=== PATIENT | female | born 1945 | race Caucasian/White ===

== ENCOUNTER 2020-06-19 19:47 | Emergency (ER) | payer MEDICARE, SELFPAY ==
--- NOTE | ~2020-06-19 | CT_ITS ---
EXAMINATION: CT abdomen pelvis w con INDICATION: Right lower quadrant pain TECHNIQUE: Computed tomographic images of the abdomen and pelvis were obtained after the administrati on of 100 cc of Omnipaque 350 intravenous contrast. The dose-length product (DLP) was 291.90 mGy-cm. Automated exposure control and iterative reconstruction technique were employed. COMPARISON: 05/26/2019 FINDINGS: Minimal dependent atelectasis is present in the lung bases. The heart size is normal. Calci fied bilateral breast implants are noted. There is a small sliding hiatal hernia. Surgical changes ar e seen near the gastroesophageal junction. The gallbladder is surgically absent. The liver, pancreas, and adrenal glands are normal. Punctate calcifications in an otherwise normal spleen likely represen t healed granulomatous disease. The kidneys are unremarkable. No pathologically enlarged abdominal or pelvic lymph nodes are identified. There is no free intraperitoneal gas or evidence of bowel obstruc tion. There is a ventral hernia of the lateral abdominal wall in the right lower quadrant which conta ins fat. There is severe lumbar spondylosis and levoscoliosis. Again noted is chronic calcification s urrounding the urethra. A large volume of colonic stool is present. IMPRESSION: 1. Fat-containing hernia of the right lower quadrant abdominal wall which could account for the patie nt's pain. Clinically correlate for reducibility. Reviewed, dictated and finalized at location A. L CEILING BUILDER IMPRESSION: 1. Fat-containing hernia of the right lower quadrant abdominal wall which could account for the patient's pain. Clinically correlate for reducibility.
[2020-06-19 19:50] VITALS: BP 161/104; PULSE 97; RESP 18; TEMP 36.9; O2SAT 98
[2020-06-19 20:06] LABS: Basophils Absolute Auto 0.1 K/mm3 (0.0-0.1); Basophils Percent Auto 0.5 % (0.2-1.2); Eosinophils Absolute Auto 0.3 K/mm3 (0-0.3); Eosinophils Percent Auto 2.5 % (0-4.4); Hematocrit 40.7 % (37.0-47.0); Hemoglobin 13.4 g/dL (12.0-15.0); Immature Granulocyte Absolute 0.03 K/mm3 (0.00-0.031); Immature Granulocyte Percent A 0.3 % (0-0.5); Lymphocytes Absolute Auto 1.85 K/mm3 (0.9-3.2); Lymphocytes Percent Auto 18.2 % (18.3-44.2); Mean Corpuscular HGB Conc 32.9 g/dl (32-36); Mean Corpuscular Hemoglobin 30.7 pg (26-34); Mean Corpuscular Volume 93.1 fl (80-100); Mean Platelet Volume 10.2 fl (7.4-10.4); Monocytes Absolute Auto 0.9 K/mm3 (0.1-0.6); Monocytes Percent Auto 8.4 % (2.6-8.5); Neutrophils Absolute Auto 7.1 K/mm3 (1.3-6.7); Neutrophils Percent Auto 70.1 % (45.5-73.1); Platelet Count Result 254 k/mm3 (150-375); Red Blood Count 4.37 M/mm3 (4.2-5.4); Red Cell Distribution Width 12.3 % (11.5-14.5); White Blood Count 10.2 K/mm3 (4.5-10.0)
[2020-06-19 20:19] LABS: Alanine Aminotransferase 20 U/L (4-35); Albumin Level 4.4 g/dL (3.5-5.1); Alkaline Phosphatase 137 U/L (38-126); Anion Gap 5 mmol/L (8-16); Aspartate Amino Transferase 36 U/L (14-36); Bilirubin,Total 0.5 mg/dL (0.2-1.3); Blood Urea Nitrogen 9 mg/dL (7-17); Calcium 9.2 mg/dL (8.4-10.2); Carbon Dioxide 30 mmol/L (22-30); Chloride 102 mmol/L (98-107); Estimated Glomerular Filt Rate > 60; Glucose 107 mg/dL (65-105); Lipase 42 U/L (23-300); Potassium 3.8 mmol/L (3.4-5.0); Sodium 137 mmol/L (137-145)
--- NOTE | 2020-06-19 21:32 | PC.NURSE ---
patient brought back to ED room 5 with abdomen pain. see initial notes. patient has been in our waiting area due to no available beds in the ED. ambulated to restroom for urine specimen. patient's daughter Luzmaria notified that patient is now in ED room she can come in.
--- NOTE | 2020-06-19 21:37 | ED.ABDPAIN ---
HPI - Abdominal Pain General Chief Complaint: Abdominal Pain Stated Complaint: RLQ pain Time Seen by Provider: 06/19/20 21:36 History of Present Illness HPI narrative: 74 yo female w/ h/o cholecystectomy, htn presents to the ED for Abdominal pain. She has had severe intermittent pain in the RLQ for the past few hours worse with movement. No radiation. No associated symptoms. She has never had this pain before. She does not believe that she has an appendix, but she is not sure. Related Data Home Medications Medication Instructions Recorded Confirmed clotrimazole-betamethasone 1 1 applic TOPICAL BID 05/18/19 05/09/20 %-0.05 % topical cream mirabegron 25 mg tablet,extended 50 mg PO DAILY 05/18/19 05/09/20 release 24 hr Adults Multivitamin 1 tablet PO DAILY 05/20/19 05/09/20 Allergies Allergy/AdvReac Type Severity Reaction Status Date / Time phenylephrine Allergy Mild Unknown Verified 06/19/20 21:35 sumatriptan [From Imitrex] Allergy Mild Nausea Verified 06/19/20 21:35 codeine Allergy Unknown Nausea Verified 06/19/20 21:35 gabapentin Allergy Unknown Nausea Verified 06/19/20 21:35 hydrocodone [From Vicodin] Allergy Unknown Nausea Verified 06/19/20 21:35 donepezil AdvReac Intermediate NAUSEA Verified 06/19/20 21:35 propoxyphene AdvReac Unknown SEVERE Verified 06/19/20 21:35 NAUSEA Review of Systems Review of Systems: All systems reviewed & are unremarkable except as noted in HPI and below Constitutional: Constitutional: Denies fever(s) ENT: Denies dizziness Cardiovascular: Cardiovascular: Denies chest pain Respiratory: Respiratory: Denies dyspnea Gastrointestinal: Gastrointestinal: Reports abdominal pain, Denies diarrhea, Denies nausea and Denies vomiting Genitourinary: Genitourinary: Denies hematuria and Denies dysuria Musculoskeletal: Musculoskeletal: Denies back pain Neurologic: Denies numbness and Denies weakness [facility] Past Medical History Medical History (Updated 06/20/20 @ 00:00 by Background Daemon) Anxiety Arthritis Benign breast cyst in female Eczema Elevated liver enzymes (~05/30/19) GERD (gastroesophageal reflux disease) HLD (hyperlipidemia) Hypertension Hypothyroid (Unknown) Meningitis Primary hypersomnia Right femoral fracture Seasonal allergies Skin problem TIA (transient ischemic attack) Urinary problem Surgical History Surgical History H/O bilateral cataract extraction H/O mastectomy H/O removal of cyst History of appendectomy History of bladder surgery History of carpal tunnel surgery of right wrist June 2019 History of hernia repair Hiatal History of hysterectomy History of repair of hiatal hernia Hx of breast implants, bilateral Hx of tonsillectomy S/P laparoscopic cholecystectomy Family History Family History Father Acute myocardial infarction Patient's father is Mother Family history of respiratory disorder Patient's mother is CHF (congestive heart failure) Social History Social History Social History: Patient lives at home with her dog. She lists family members Luzmaria and Bernadette as her surrogate medical decision makers. She wishes to be listed as a Full Code, but does not wish to be on retirement ventilation. She sees Dr. Peres as her primary. Smoking status: Never smoker Second hand tobacco smoke exposure: No Alcohol intake: current Substance use: never Gender identity (if verbalized by the patient): Female Spiritual care concerns: No Agree to blood products: No Exam Const: General: healthy appearing, no acute distress and alert Orientation/consciousness: patient oriented x3 HENMT: Head: normal to inspection Neck: Neck: normal visual inspection and no lymphadenopathy Chest: Chest palpation & inspecti
--- NOTE | 2020-06-19 21:40 | PC.NURSE ---
urine specimen collected and sent to lab. provider in room. on BP and O2 monitor.
[2020-06-19 21:43] VITALS: O2SAT 97
[2020-06-19 21:45] VITALS: O2SAT 96
[2020-06-19 21:46] VITALS: BP 194/91; O2SAT 98
[2020-06-19 21:48] LABS: Add Urine Microscopic? YES; Appearance Urine Clear (Clear); Bilirubin Urine Negative (Negative); Blood Urine Negative (Negative); Color Urine Straw (Yellow); Glucose Urine UA Negative (Negative); Ketones Urine Trace mg/dL (Negative); Leukocyte Esterase Ur Negative LEU/UL (Negative); Mucus Urine Rare /lpf; Nitrate Urine Negative (Negative); Protein Urine Negative (Negative); RBC Urine 0-2 /hpf (0-2); Squamous Epithelial Cell Urine Rare /hpf (Few); Urobilinogen Urine Negative mg/dL (<2.0); WBC Urine 0-3 /hpf
--- NOTE | 2020-06-19 21:50 | PC.NURSE ---
SL inserted. on BP and O2 monitor. waiting for urine results. waiting for further orders from provider.
--- NOTE | 2020-06-19 22:20 | PC.NURSE ---
patient in CT now.
--- NOTE | 2020-06-19 22:34 | PC.NURSE ---
CT resulted. patient ambulating to restroom.
--- NOTE | 2020-06-19 22:49 | PC.NURSE ---
provider in room now discussing test results with patient and her daughter.
[2020-06-19] MEDS: KETOROLAC 30 MG/ML VIAL (*BKC) IV PUSH (23:04)
[2020-06-19] MEDS: traMADol HCL (*CRX) 50 MG TABLET PO (23:05)
--- NOTE | 2020-06-19 23:05 | PC.NURSE ---
patient medicated as ordered. daughter in room. report given to Bozena.
[2020-06-19 23:28] VITALS: BP 121/109; PULSE 79; RESP 16; TEMP 36.6; O2SAT 97
== END 2020-06-19 23:28 | disposition home or self-care (01) ==
PROVIDERS: Emergency Provider Emergency Medicine; PCP Internal Medicine
DX: K46.9 Unspecified abdominal hernia without obstruction or gangrene (principal); M19.90 Unspecified osteoarthritis, unspecified site; K21.9 Gastro-esophageal reflux disease without esophagitis; E78.5 Hyperlipidemia, unspecified; I10 Essential (primary) hypertension; E03.9 Hypothyroidism, unspecified; Z86.73 Personal history of transient ischemic attack (TIA), and cerebral infarction without residual deficits; Z98.42 Cataract extraction status, left eye; Z98.41 Cataract extraction status, right eye; Z90.13 Acquired absence of bilateral breasts and nipples
CPT/HCPCS: 36415; 74177; 80053; 81001; 83690; 85025; 96374; 99284; A9270; J1885; Q9967

== ENCOUNTER 2020-07-02 10:31 | Outpatient (CLI) | payer MEDICARE, SELFPAY ==
--- NOTE | 2020-07-02 10:33 | ECG_ITS ---
Measurements Intervals Lovely Rate: 71 P: 37 LA: 147 QRS: -10 QRSD: 82 T: 37 QT: 385 QTc: 421 Interpretive Statements SINUS RHYTHM POSSIBLE LEFT ATRIAL ENLARGEMENT VOLTAGE CRITERIA FOR LVH POOR R WAVE PROGRESSION, ANTERIOR LEADS BASELINE ARTIFACT- I, II, III, AVR, AVL, AVF, V4-V6 BORDERLINE ECG Electronically Signed On 07-02-2020 10:54:42 SHUTTLE FINAL INSPECTOR by Prasanna Lorenzana D.O.
[2020-07-02 11:24] LABS: Basophils Percent Auto 0.6 % (0.2-1.2); Eosinophils Absolute Auto 0.3 K/mm3 (0-0.3); Eosinophils Percent Auto 3.5 % (0-4.4); Hematocrit 37.5 % (37.0-47.0); Hemoglobin 12.1 g/dL (12.0-15.0); Immature Granulocyte Absolute 0.02 K/mm3 (0.00-0.031); Immature Granulocyte Percent A 0.3 % (0-0.5); Lymphocytes Absolute Auto 1.35 K/mm3 (0.9-3.2); Lymphocytes Percent Auto 19.1 % (18.3-44.2); Mean Corpuscular HGB Conc 32.3 g/dl (32-36); Mean Corpuscular Hemoglobin 30.3 pg (26-34); Mean Corpuscular Volume 93.8 fl (80-100); Monocytes Absolute Auto 0.7 K/mm3 (0.1-0.6); Monocytes Percent Auto 9.2 % (2.6-8.5); Neutrophils Absolute Auto 4.8 K/mm3 (1.3-6.7); Neutrophils Percent Auto 67.3 % (45.5-73.1); Platelet Count Result 237 k/mm3 (150-375); Red Cell Distribution Width 12.8 % (11.5-14.5); White Blood Count 7.1 K/mm3 (4.5-10.0)
[2020-07-02 11:38] LABS: Anion Gap 4 mmol/L (8-16); Blood Urea Nitrogen 17 mg/dL (7-17); Calcium 8.6 mg/dL (8.4-10.2); Carbon Dioxide 30 mmol/L (22-30); Chloride 106 mmol/L (98-107); Estimated Glomerular Filt Rate > 60; Glucose 99 mg/dL (65-105); Potassium 3.8 mmol/L (3.4-5.0); Sodium 140 mmol/L (137-145)
== END 2020-07-02 10:32 | disposition home or self-care (01) ==
PROVIDERS: PCP Internal Medicine; Visit Provider Surgery
DX: Z01.818 Encounter for other preprocedural examination (principal); K43.9 Ventral hernia without obstruction or gangrene; I10 Essential (primary) hypertension; R94.31 Abnormal electrocardiogram [ECG] [EKG]
CPT/HCPCS: 36415; 80048; 85025; 86850; 86900; 86901; 93005

== ENCOUNTER → 2020-07-07 01:15 | Outpatient (CLI) | payer MEDICARE, SELFPAY ==
[2020-07-07 20:38] LABS: SARS-CoV-2 RNA PCR Negative
== END ==
PROVIDERS: PCP Internal Medicine; Visit Provider Surgery
DX: Z01.812 Encounter for preprocedural laboratory examination (principal); Z20.822 Contact with and (suspected) exposure to COVID-19
CPT/HCPCS: C9803; U0003; U0005

== ENCOUNTER 2020-07-10 02:13 | Day surgery (SDC) | payer MEDICARE, SELFPAY ==
[2020-06-28 14:27] VITALS: BMI 22.5
[2020-07-10] VITALS (14 sets, daily range): BP systolic 121–169; BP diastolic 57–82; PULSE 65–92; RESP 12–16; TEMP 36.5–37.2; O2SAT 94–100
[2020-07-10] MEDS: ACETAMINOPHEN 500 MG TABLET 1000 MG PO (10:41)
[2020-07-10] MEDS: KETOROLAC 15 MG/ML VIAL (*BKC) IV PUSH (10:51)
[2020-07-10] MEDS: LACTATED RINGERS 1,000 ML 30 ML IV CONT ×2 (10:53→13:41)
--- NOTE | 2020-07-10 11:27 | WPDANESEPPF ---
Anes - Initial Pre Proc Eval Procedure: Operation Date: 07/10/20 12:00 Proposed Procedures p Laparoscopic Ventral Spigelian Hernia Repair With Mesh - Nico Judge MD Date/Time: 07/10/20 11:27 Surgeon: Nico Judge MD Pre Op Diagnosis: Right Lower Quadrant Ventral Hernia Patient Data Age: 74 Gender: F Height: 5 ft Weight: 52.5 kg Last Vital Signs Temp 37.2 C 07/10/20 10:20 Pulse 75 07/10/20 10:20 Resp 14 07/10/20 10:20 BP 152/69 H 07/10/20 10:20 Pulse Ox 98 07/10/20 10:20 Allergies Allergy/AdvReac Type Severity Reaction Status Date / Time phenylephrine Allergy Mild Dizziness Verified 06/28/20 14:23 sumatriptan [From Imitrex] Allergy Mild Nausea Verified 06/28/20 14:23 codeine Allergy Unknown Nausea Verified 06/28/20 14:23 gabapentin Allergy Unknown Nausea Verified 06/28/20 14:23 hydrocodone [From Vicodin] Allergy Unknown Nausea Verified 06/28/20 14:23 donepezil AdvReac Intermediate NAUSEA Verified 06/28/20 14:23 propoxyphene AdvReac Unknown SEVERE Verified 06/28/20 14:23 NAUSEA Home Medications Medication Instructions Recorded Confirmed Type clotrimazole-betamethasone 1 1 applic TOPICAL BID PRN 05/18/19 07/10/20 History %-0.05 % topical cream mirabegron 25 mg tablet,extended 50 mg PO DAILY 05/18/19 07/10/20 History release 24 hr Adults Multivitamin 1 tablet PO DAILY 05/20/19 07/10/20 History armodafinil 250 mg tablet 125 mg PO DAILY 30 Days #15 tablet 02/09/20 07/10/20 Rx meloxicam 15 mg tablet 15 mg PO DAILY #90 tablet 02/29/20 07/10/20 Rx levothyroxine 50 mcg tablet 50 mcg PO DAILY #90 tablet 04/09/20 07/10/20 Rx tramadol 50 mg PO Q6H PRN #10 tablet 06/19/20 07/10/20 Rx azelastine 137 mcg NASAL Q12H PRN 06/28/20 07/10/20 History amlodipine 5 mg-benazepril 20 mg 1 cap PO DAILY #90 cap 07/10/20 07/10/20 Rx capsule Patient hx anesthesia problems: none Family hx anesthesia problems: none PMFSH Past Medical History Medical History Anxiety Arthritis Benign breast cyst in female Eczema Elevated liver enzymes (~05/30/19) GERD (gastroesophageal reflux disease) HLD (hyperlipidemia) Hypertension Hypothyroid (Unknown) Meningitis Primary hypersomnia Right femoral fracture Seasonal allergies Skin problem TIA (transient ischemic attack) Urinary problem Surgical History Surgical History H/O bilateral cataract extraction H/O mastectomy H/O removal of cyst History of appendectomy History of bladder surgery History of carpal tunnel surgery of right wrist June 2019 History of hernia repair Hiatal History of hysterectomy History of repair of hiatal hernia Hx of breast implants, bilateral Hx of tonsillectomy S/P laparoscopic cholecystectomy Family History Family History Father Acute myocardial infarction Patient's father is Mother Family history of respiratory disorder Patient's mother is CHF (congestive heart failure) Social History Social History Social History: Patient lives at home with her dog. She lists family members Luzmaria and Bernadette as her surrogate medical decision makers. 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 She sees Dr. Peres as her primary. Smoking status: Never smoker Second hand tobacco smoke exposure: No Alcohol intake: current Alcohol use details: STATES MAYBE 1 DRINK A MONTH IF THAT Substance use: never Substance use type: does not use Living arrangements: alone Gender identity (if verbalized by the patient): Female Spiritual care concerns: No Agree to blood products: No Anes - Eval Final PreProcedure Day of Procedure 07/10/20 11:27 Patient weight: normal Heart: regular rate and r
--- NOTE | 2020-07-10 12:06 | WPDHPUPDATE1 ---
History and Physical Update Update Date/Time: 07/10/20 12:06 History and Physical has been reviewed, including an updated exam of the patient. There are NO changes in the patient's condition. I have reviewed the pt's CT scan with the Radiologist and the hernia is either a lateral abdominal wall ventral incisional hernia after an Open appendectomy or a true Spigelian hernia. I have discussed repairing this hernia with laparscopy and a piece of mesh. or open with mesh if we can't get into her abdomen. Risks, benefits, and alternatives of a laparoscopic ventral hernia repair with mesh have been discussed and questions answered. Patient agrees to proceed with procedure.
[2020-07-10] MEDS: ceFAZolin 2 GM/D5W 50 ML 2 GM/50 ML BAG IVPB (12:18)
[2020-07-10] MEDS: BUPIVACAINE/EPINEPHRINE 0.5% 30 ML VIAL INFILTRATE (12:56)
--- NOTE | 2020-07-10 13:18 | SUR.OPER ---
Ebl=5ml
--- NOTE | 2020-07-10 13:32 | PM.PROC ---
Procedure Note - Detailed Date of procedure: 07/10/20 Pre-op diagnosis: Right Lower Quadrant Ventral Hernia Post-op diagnosis: other (Laparoscopic repair of a right-sided spigelian hernia (incarcerated fat on edge of small bowel), with mesh) Procedure performed: Laparoscopic repair of a right-sided spigelian hernia (incarcerated fat on edge of small bowel), with mesh (6.6 cm round dual sided Parietex mesh) Description of procedure: DESCRIPTION OF PROCEDURE: The patient was placed in the supine position on the operative table and after induction of adequate general endotracheal anesthesia by Chay Anesthesia, the entire abdomen was prepped and draped in usual sterile fashion and the head placed slightly up. We did not place a Acosta catheter as she voided prior to going back to the OR. An Ioban drape was used to prevent contact of the mesh with the skin during this clean case. Following this, local anesthetic was placed and a spot selected about two fingerbreadths below the costal margin on the left and a small incision made after instilling local anesthetic using 0.25% Marcaine with epinephrine. Following this, a Veress needle technique using the water drop test was completed. Using 2 towel clips on the skin, I carefully elevated the skin and then passed the Veress needle into the abdomen and we could see that the saline dropped through the Veress needle easily. CO2 gas was connected and the abdomen was insufflated to 14 mm Hg pressure after starting out at around 9. Following this, a 0 degree 5 mm laparoscope was placed inside a 5 mm trocar, which was carefully twisted into the abdomen without difficulty, seeing a open pneumoperitoneum as we entered. Thus, the trocar was removed, the sleeve confirmed to be nicely within the abdomen, and we carefully inspected the abdomen. Careful inspection of the abdomen revealed no inguinal hernias. There was a right-sided lateral wall abdominal hernia (spigelian) sees that look like a contained some fat on the edge of the small bowel and it was incarcerated. I used a grasper and a little bit of cautery on a L hook cautery to carefully free the fat hanging off the small bowel from the hernia defect and this all pulled in to the abdomen. We carefully inspected the small bowel in the area did not appear to have any injury to the small bowel self. It appeared that the small bowel that was densely adherent to this site was approximately 6 cm proximal to the ileocecal valve level. Following this, we carefully planned by measuring the defect. Defect was circular and about 2.5 cm in diameter. Our mesh, a circular 6.6 cm piece of dual-sided Parietex piece of mesh was chosen, so that we would have 4.5 cm of overlap in all directions over the circular Rt. lateral abdominal wall defect. Prior to placing the mesh I carefully used to 1. Vicryl sutures placed by making a small len directly over the hernia defect in the skin after placing local anesthetic in the area. Each of these was carefully positioned above and below the fascial defect and then when the pulled it up it carefully nicely pulled the fascial defect together. These 2 sutures were tied into the subcutaneous tissues. Following this we prepared to place the mesh in the abdomen. Following this a purple O Vicryl suture was placed through the mesh such that I could grab this and pull it up through the Rt. abdominal wall hernia area with the suture Passer. Then the 6.6 cm circular mesh was placed into the abdomen by rolling it to protect the absorbable covering on the downside of the mesh. The purple Vicryl suture that was placed through the mesh such that I could grab this and pull it up through the Rt. abdominal hernia area. to do this I used the suture passer after making a small opening with an 11 blade knife after placing local anesthetic directly in the center of the erum external to the hernia defect. The suture passer was used to grasp this centering stitch
[2020-07-10] MEDS: ONDANSETRON INJ 4 MG/2 ML VIAL IV PUSH (14:03)
--- NOTE | 2020-07-10 14:23 | SUR.PHASEI ---
Call to Dr. Kendrick patient complaining of continued nausea after dose of Zofran given IVP. Obtained orders for pepcid 20MG IVP and benadryl 12.5MG IVP.
[2020-07-10] MEDS: FAMOTIDINE 20 MG/2 ML VIAL IV PUSH (14:30)
[2020-07-10] MEDS: diphenhydrAMINE HCl INJ 50 MG/ML VIAL 12.5 MG IV PUSH (14:30)
== END 2020-07-10 17:15 | disposition home or self-care (01) ==
PROVIDERS: PCP Internal Medicine; Visit Provider Surgery
PROC: (CPT 49653; principal; 2020-07-10 12:00)
DX: K43.6 Other and unspecified ventral hernia with obstruction, without gangrene (principal); I10 Essential (primary) hypertension; E03.9 Hypothyroidism, unspecified; E78.5 Hyperlipidemia, unspecified; K21.9 Gastro-esophageal reflux disease without esophagitis; Z86.73 Personal history of transient ischemic attack (TIA), and cerebral infarction without residual deficits
CPT/HCPCS: 49653; A9270; C1781; J0690; J1100; J1200; J1885; J2405; J2704; J2710; J3010; J7120

== ENCOUNTER → 2020-09-22 01:11 | Outpatient (CLI) | payer MEDICARE, SELFPAY ==
[2020-09-22 20:53] LABS: SARS-CoV-2 RNA PCR Negative
== END ==
PROVIDERS: PCP Internal Medicine; Visit Provider Internal Medicine Gastroenterology
DX: Z01.812 Encounter for preprocedural laboratory examination (principal); Z20.822 Contact with and (suspected) exposure to COVID-19
CPT/HCPCS: C9803; U0003; U0005

== ENCOUNTER 2020-09-26 00:37 | Day surgery (SDC) | payer MEDICARE, SELFPAY ==
[2020-09-13 15:16] VITALS: BMI 22.8
[2020-09-26 10:47] VITALS: BP 182/82; PULSE 80; RESP 16; TEMP 36.6; O2SAT 98; BMI 23.1
[2020-09-26] MEDS: LACTATED RINGERS 1,000 ML 150 ML IV CONT (10:57)
--- NOTE | 2020-09-26 11:06 | WPDANESEPPF ---
Anes - Initial Pre Proc Eval Procedure: Operation Date: 09/26/20 12:00 Proposed Procedures p Esophagogastroduodenoscopy - Donell Maldonado MD Date/Time: 09/26/20 11:06 Surgeon: Donell Maldonado MD Pre Op Diagnosis: Dysphagia Patient Data Age: 75 Gender: F Height: 5 ft Weight: 53.6 kg Last Vital Signs Temp 97.9 F 09/26/20 10:47 Pulse 80 09/26/20 10:47 Resp 16 09/26/20 10:47 BP 182/82 H 09/26/20 10:47 Pulse Ox 98 09/26/20 10:47 Allergies Allergy/AdvReac Type Severity Reaction Status Date / Time phenylephrine Allergy Mild Dizziness Verified 09/26/20 10:46 sumatriptan [From Imitrex] Allergy Mild Nausea Verified 09/26/20 10:46 codeine Allergy Unknown Nausea Verified 09/26/20 10:46 gabapentin Allergy Unknown Nausea Verified 09/26/20 10:46 hydrocodone [From Vicodin] Allergy Unknown Nausea Verified 09/26/20 10:46 donepezil AdvReac Intermediate NAUSEA Verified 09/26/20 10:46 propoxyphene AdvReac Unknown SEVERE Verified 09/26/20 10:46 NAUSEA Home Medications Medication Instructions Recorded Confirmed Type clotrimazole-betamethasone 1 1 applic TOPICAL BID PRN 05/18/19 09/13/20 History %-0.05 % topical cream mirabegron 25 mg tablet,extended 50 mg PO DAILY 05/18/19 09/13/20 History release 24 hr Adults Multivitamin 1 tablet PO DAILY 05/20/19 09/13/20 History levothyroxine 50 mcg tablet 50 mcg PO DAILY #90 tablet 04/09/20 09/13/20 Rx tramadol 50 mg PO Q6H PRN #10 tablet 06/19/20 09/13/20 Rx amlodipine 5 mg-benazepril 20 mg 1 cap PO DAILY #90 cap 07/10/20 09/13/20 Rx capsule armodafinil 250 mg tablet 125 mg PO DAILY 30 Days #15 tablet 08/09/20 09/13/20 Rx meloxicam 15 mg tablet 15 mg PO DAILY #90 tablet 08/27/20 09/13/20 Rx ondansetron 4 mg PO Q6H PRN 09/13/20 09/13/20 History Patient hx anesthesia problems: none Family hx anesthesia problems: none [facility] Past Medical History Medical History Anxiety Arthritis Benign breast cyst in female Eczema Elevated liver enzymes (~05/30/19) GERD (gastroesophageal reflux disease) HLD (hyperlipidemia) Hypertension Hypothyroid (Unknown) Meningitis Primary hypersomnia Right femoral fracture Seasonal allergies Skin problem TIA (transient ischemic attack) Urinary problem Surgical History Surgical History H/O bilateral cataract extraction H/O mastectomy H/O removal of cyst History of appendectomy History of bladder surgery History of carpal tunnel surgery of right wrist June 2019 History of hernia repair Hiatal History of hysterectomy History of repair of hiatal hernia Hx of breast implants, bilateral Hx of tonsillectomy S/P laparoscopic cholecystectomy Family History Family History Father Acute myocardial infarction Patient's father is Mother Family history of respiratory disorder Patient's mother is CHF (congestive heart failure) Social History Social History Social History: Patient lives at home with her dog. She lists family members Luzmaria and Bernadette as her surrogate medical decision makers. She wishes to be listed as a Full Code, but does not wish to be on termite control technician ventilation. She sees Dr. Peres as her primary. Smoking status: Never smoker Second hand tobacco smoke exposure: No Alcohol intake: never Substance use: never Substance use type: does not use Living arrangements: alone Gender identity (if verbalized by the patient): Female Spiritual care concerns: No Agree to blood products: No Anes - Eval Final PreProcedure Day of Procedure 09/26/20 11:06 Patient weight: normal Heart: regular rate and rhythm Lungs: clear to auscultation Airway: Mallampati scale Neurological: alert a
[2020-09-26] MEDS: BENZOCAINE (*SP) 60 ML SPRAY CAN (HURRICAINE) 1 SPRAY MUCOUS MEM (11:36)
--- NOTE | 2020-09-26 11:47 | WPDHPUPDATE1 ---
History and Physical Update Update Date/Time: 09/26/20 11:47 History and Physical has been reviewed, including an updated exam of the patient. There are NO changes in the patient's condition. Risks, benefits, and alternatives have been discussed and questions answered. Patient agrees to proceed with procedure.
[2020-09-26 11:49] VITALS: BP 173/80; PULSE 86; RESP 17; O2SAT 97
[2020-09-26 11:59] VITALS: BP 178/80; PULSE 80; RESP 19; O2SAT 97
[2020-09-26 12:09] VITALS: BP 165/78; PULSE 74; RESP 17; O2SAT 97
== END 2020-09-26 12:22 | disposition home or self-care (01) ==
PROVIDERS: PCP Internal Medicine; Visit Provider Internal Medicine Gastroenterology
PROC: 0DJ08ZZ Inspection of Upper Intestinal Tract, Via Natural or Artificial Opening Endoscopic (ICD-10-PCS; CPT 43235; principal; 2020-09-26 12:00)
DX: K29.80 Duodenitis without bleeding (principal); K44.9 Diaphragmatic hernia without obstruction or gangrene; Z79.1 Long term (current) use of non-steroidal anti-inflammatories (NSAID); K21.9 Gastro-esophageal reflux disease without esophagitis; I10 Essential (primary) hypertension; E03.9 Hypothyroidism, unspecified; Z86.73 Personal history of transient ischemic attack (TIA), and cerebral infarction without residual deficits
CPT/HCPCS: 43239; 88305; J2704; J7120

== ENCOUNTER → 2020-10-17 11:16 | Outpatient (CLI) | payer MEDICARE, SELFPAY ==
--- NOTE | ~2020-10-17 | MM_ITS ---
EXAMINATION: MM scrn ana implant BI w lexus HISTORY: Screening mammogram TECHNIQUE: Craniocaudal and mediolateral oblique 3-D tomosynthesis images with implant displacement a nd synthetic 2-D images were generated. Craniocaudal and mediolateral oblique views of the breasts wi thout implant displacement were obtained using full field digital mammography. CAD analysis was submi tted and interpreted. COMPARISON: Comparison to multiple prior studies sequentially, with oldest reviewed study dated 09/2013. BREAST PARENCHYMAL COMPOSITION: The breasts are heterogenously dense, which may obscure small masses. FINDINGS: There is no evidence of suspicious mass, calcification, or architectural distortion to sugg est malignancy in either breast. There has been no suspicious interval change. IMPRESSION: 1. No mammographic evidence of malignancy. 2. Recommend routine screening mammography in one year. BI-RADS Category 1: Negative Reviewed, dictated and finalized at location A.
--- NOTE | ~2020-10-17 | DEXA_ITS ---
Bone Density Report Name: Daniela Brooks Age: 75 Sex: Female Ethnicity: White Date of : 1945 Indication: osteopenia; height loss; prior fracture; hysterectomy; postmenopausal Referring Provider: RADHA ARTHUR Study: Bone densitometry was performed. Exam Date: October 17, 2020 Accession number: [id number] Bone Density: Region BMD T-score Z-score Classification AP Spine (L1, L2, L4) 1.012 -0.2 2.3 Normal Femoral Neck (Left) 0.639 -1.9 0.3 Osteopenia Total Hip (Left) 0.744 -1.6 0.3 Osteopenia Femoral Neck (Right) 0.589 -2.3 -0.2 Osteopenia Total Hip (Right) 0.649 -2.4 -0.5 Osteopenia Total Hip Mean 0.697 -2.0 -0.1 Osteopenia World Health Organization criteria for BMD impression classify patients as: Normal (T-score at or above -1.0), Osteopenia (T-score between -1.0 and -2.5), or Osteoporosis (T-score at or below -2.5). 10-year Fracture Risk(1): Major Osteoporotic Fracture 23% Hip Fracture 6.6% Reported Risk Factors: [place] (), Neck BMD=0.589, BMI=25.0, previous fracture (1) FRAX(R) Version 3.08. Fracture probability calculated for an untreated patient. Fracture probability may be lower if the patient has received treatment. Previous Exams: Region Exam Age BMD T-score BMD Change BMD Change Date g/cm2 vs Baseline vs Previous AP Spine(L1, L2, L4) 10/17/2020 75 1.012 -0.2 0.132 -0.091* 02/16/2018 72 1.102 0.6 0.223 0.094* 01/28/2016 70 1.009 -0.2 0.129 0.043* 01/22/2009 63 0.966 -0.6 0.086 0.105* 06/04/2006 60 0.861 -1.6 -0.019 -0.019 11/03/2003 58 0.880 -1.4 Total Hip(Left) 10/17/2020 75 0.744 -1.6 -0.044 -0.017 02/16/2018 72 0.761 -1.5 -0.027 0.021 01/28/2016 70 0.740 -1.7 -0.048 -0.039* 11/03/2013 68 0.779 -1.3 -0.010 -0.073* 01/22/2009 63 0.851 -0.7 0.063 0.053* 06/04/2006 60 0.799 -1.2 0.010 0.010 11/03/2003 58 0.788 -1.3 Total Hip(Right) 10/17/2020 75 0.649 -2.4 -0.134 -0.051* 02/16/2018 72 0.700 -2.0 -0.082 -0.065* 01/28/2016 70 0.765 -1.5 -0.017 0.073* 11/03/2013 68 0.691 -2.1 -0.091 -0.032* 01/22/2009 63 0.723 -1.8 -0.059 0.016 06/04/2006 60 0.707 -1.9 -0.075 -0.075 11/03/2003 58 0.782 -1.3 *Denotes significance at 95% confidence le
== END ==
PROVIDERS: PCP Internal Medicine; Visit Provider Obstetrics & Gynecology Gynecology
DX: Z12.31 Encounter for screening mammogram for malignant neoplasm of breast (principal); Z78.0 Asymptomatic menopausal state; M85.852 Other specified disorders of bone density and structure, left thigh; M85.851 Other specified disorders of bone density and structure, right thigh
CPT/HCPCS: 77063; 77067; 77080

== ENCOUNTER 2020-11-12 11:01 | Outpatient (CLI) | payer MEDICARE, SELFPAY ==
--- NOTE | 2020-11-12 11:09 | ECHO_ITS ---
Patient Info Name: Daniela Brooks Age: 75 years : 1945 Gender: Female Ht: 59 in Wt: 115 lbs BSA: 1.48 m2 HR: 78 bpm BP: 177 / 77 mmHg Heart Rhythm: Sinus Rhythm Exam Date: 11/12/2020 11:17 AM Exam Location: [facility] Patient Status: Outpatient Admit Date: 11/12/2020 Staff Ordering Physician: Marcel Peres DO Project Reservoir Engineer: Ashley Nixon RDCS Attending Provider: Marcel Peres DO Exam Type: CA echo doppler color flow Study Info Indications I10 - Essential (primary) hypertension Complete two-dimensional, color flow and Doppler transthoracic echocardiogram is performed. Summary 1. Complete two-dimensional, color flow and Doppler transthoracic echocardiogram is performed. 2. Left ventricular chamber dimension is normal. 3. Left ventricular systolic function is normal, estimated at 60-65%. 4. There is mildly increased left ventricular wall thickness. 5. The left ventricular diastolic function is grade I diastolic dysfunction. 6. E/e' 12 is mildly elevated. 7. Left atrial chamber dimension is mildly enlarged. 8. There is moderate aortic valve sclerosis. 9. There is mild mitral valve regurgitation. 10. There is trace tricuspid valve regurgitation. 11. No pulmonary hypertension, estimated pulmonary arterial systolic pressure is 34 mmHg. Left Ventricle E/e' 12 is mildly elevated. Left ventricular chamber dimension is normal. Left ventricular systolic function is normal, estimated at 60-65%. There is mildly increased left ventricular wall thickness. The left ventricular diastolic function is grade I diastolic dysfunction. Right Ventricle Right ventricular systolic function is normal and with normal TAPSE 2.1 cm. Right ventricular chamber dimension is normal. Left Atria Left atrial chamber dimension is mildly enlarged. Right Atria Right atrial chamber dimension is normal. Aortic Valve The aortic valve is trileaflet. There is moderate aortic valve sclerosis. There is no aortic valve stenosis. There is no aortic valve regurgitation. Pulmonic Valve There is no pulmonic regurgitation. Mitral Valve There is no mitral valve stenosis. There is mild mitral valve regurgitation. Tricuspid Valve There is trace tricuspid valve regurgitation. No pulmonary hypertension, estimated pulmonary arterial systolic pressure is 34 mmHg. Pericardium/Pleural There is no pericardial effusion. Inferior Vena Cava Normal inferior vena cava with >50% collapse upon inspiration consistent with normal right atrial pressure, 5 mmHg. Aorta The aortic root size at the sinus of Valsalva is normal. Left Ventricular Outflow Tract Name Value Normal LVOT 2D LVOT Diameter 1.9 cm LVOT Doppler LVOT Peak Gradient 4 mmHg LVOT Mean Gradient 2 mmHg LVOT VTI 25 cm LVOT VTI/AV VTI Ratio 0.5 LVOT Stroke Volume 67 ml LVOT CO 4.5 l/min LVOT CI 3.0 l/min/m2 Pulmonic Valve -------
== END 2020-11-12 11:02 | disposition home or self-care (01) ==
PROVIDERS: PCP Internal Medicine; Visit Provider Internal Medicine
DX: R01.1 Cardiac murmur, unspecified (principal); I10 Essential (primary) hypertension; I35.8 Other nonrheumatic aortic valve disorders; I51.7 Cardiomegaly
CPT/HCPCS: 93306

== ENCOUNTER 2021-11-27 06:54 | Outpatient (CLI) | payer MEDICARE, SELFPAY ==
--- NOTE | 2021-11-27 09:52 | WPDNEUROLOGY ---
Neurology EEG Report General Information Date of Study: 11/27/21 TEST eeg DIAGNOSIS amnesia CONDITION OF RECORDING Awake drowsy and sleep EEG NUMBER [id number] CLINICAL HISTORY patient reported she has noted a decline in her memory EEG DESCRIPTION basic resting occipital frequency consists of low to medium voltage poorly organized 8 to 9 hertz per 2nd alpha admixed with low-voltage 15 to 18 hertz per 2nd beta. During drowsiness low-voltage beta activity seen diffusely admixed with waxing and waning posterior alpha rhythm. Bilateral symmetrical sleep activity seen during sleep. Multiple movement artifacts are noted throughout the tracing. Hyperventilation not done. Photic stimulation produced normal drive. Non paroxysmal. Nonfocal. Nonlateralizing. IMPRESSION Only minimally abnormal record due to the presence of excessive amount of theta activity. this abnormality is suggestive of underlying organic a metabolic encephalopathy or neuro degenerative process clinical correlation recommended.
== END 2021-11-27 06:55 | disposition home or self-care (01) ==
LOC: ANHNEURO 06:57
PROVIDERS: PCP Internal Medicine; Visit Provider Psychiatry & Neurology Neurology
DX: R41.3 Other amnesia (principal); R94.01 Abnormal electroencephalogram [EEG]
CPT/HCPCS: 95816

== ENCOUNTER 2022-02-24 00:59 | Day surgery (SDC) | payer MEDICARE, SELFPAY ==
[2022-02-07 14:29] VITALS: BMI 22.4
[2022-02-24 09:32] VITALS: BP 159/81; PULSE 75; RESP 16; TEMP 36.6; O2SAT 96; BMI 23.9
--- NOTE | 2022-02-24 09:34 | WPDANESEPPF ---
Anes - Initial Pre Proc Eval Procedure: Operation Date: 02/24/22 10:30 Proposed Procedures p Esophagogastroduodenoscopy - Donell Maldonado MD Date/Time: 02/24/22 09:34 Surgeon: Donell Maldonado MD Pre Op Diagnosis: dysphagia Patient Data Age: 76 Gender: F Height: 1.52 m Weight: 55.6 kg Last Vital Signs Temp 36.6 C 02/24/22 09:32 Pulse 75 02/24/22 09:32 Resp 16 02/24/22 09:32 BP 159/81 H 02/24/22 09:32 Pulse Ox 96 02/24/22 09:32 O2 Del Method Room Air 02/24/22 09:32 Allergies Allergy/AdvReac Type Severity Reaction Status Date / Time donepezil AdvReac Intermediate NAUSEA Verified 02/24/22 09:30 phenylephrine AdvReac Mild Dizziness Verified 02/24/22 09:30 sumatriptan [From Imitrex] AdvReac Mild Nausea Verified 02/24/22 09:30 codeine AdvReac Unknown Nausea Verified 02/24/22 09:30 gabapentin AdvReac Unknown Nausea Verified 02/24/22 09:30 hydrocodone [From Vicodin] AdvReac Unknown Nausea Verified 02/24/22 09:30 propoxyphene AdvReac Unknown SEVERE Verified 02/24/22 09:30 NAUSEA Home Medications Medication Instructions Recorded Confirmed Type clotrimazole-betamethasone 1 1 applic topical BID PRN Itching 05/18/19 02/24/22 History %-0.05 % topical cream (Lotrisone) multivit with minerals-iron 18 1 tablet PO DAILY 05/20/19 02/24/22 History mg-folic ac 400 mcg-vit K 25 mcg tablet (Adults Multivitamin) tramadol 50 mg tablet 50 mg PO Q6H PRN pain #10 tabs 06/19/20 02/24/22 Rx celecoxib 200 mg capsule 200 mg PO DAILY #90 caps 05/27/21 02/24/22 Rx benazepril 40 mg tablet 40 mg PO DAILY #90 tabs 07/05/21 02/24/22 Rx armodafinil 250 mg tablet 125 mg PO DAILY 1 month #15 tabs 08/23/21 02/24/22 Rx fluticasone propionate 50 2 spray intranasal DAILY PRN nasal 09/03/21 02/24/22 Rx mcg/actuation nasal congestion #15.8 mL spray,suspension amlodipine 5 mg tablet 5 mg PO DAILY #90 tabs 10/09/21 02/24/22 Rx glycopyrrolate 1 mg tablet 1 mg PO BID PRN secretions #90 tabs 01/01/22 02/24/22 Rx levothyroxine 50 mcg tablet 50 mcg PO DAILY #90 tabs 01/03/22 02/24/22 Rx memantine 10 mg tablet 10 mg PO QAM #30 tabs 01/29/22 02/24/22 Rx calcium carbonate 600 mg-vitamin 1 tablet PO DAILY 02/07/22 02/24/22 History D3 5 mcg (200 unit) tablet ergocalciferol (vitamin D2) 25,000 50,000 unit PO WEEKLY 02/07/22 02/24/22 History unit capsule methocarbamol 750 mg tablet 750 mg PO DAILY PRN muscle spasms 02/07/22 02/24/22 History duloxetine 30 mg capsule,delayed 30 mg PO DAILY #90 caps 02/10/22 02/24/22 Rx release (Cymbalta) Patient hx anesthesia problems: none Family hx anesthesia problems: none Results Review: All pre-operative results and documents have been reviewed as part of the pre-operative evaluation. [facility] Past Medical History Medical History Anxiety Arthritis Balance disorder Benign breast cyst in female Eczema Elevated liver enzymes (~05/30/19) GERD (gastroesophageal reflux disease) HLD (hyperlipidemia) Hypertension Hypothyroid (Unknown) Inflammatory arthritis Meningitis Primary hypersomnia Right femoral fracture Scoliosis (and kyphoscoliosis), idiopathic Seasonal allergies Skin problem TIA (transient ischemic attack) Urinary problem Surgical History Surgical History H/O bilateral cataract extraction H/O mastectomy H/O removal of cyst History of appendectomy History of bladder surgery History of carpal tunnel surgery of right wrist June 2019 History of hernia repair Hiatal History of hysterectomy History of repair of hiatal hernia Hx of breast implants, bilateral Hx of tonsillectomy S/P laparoscopic cholecystectomy Family History Family History Father Acute myocardial infarction Patient's father is Mother Family history of respiratory disor
[2022-02-24] MEDS: LACTATED RINGERS 1,000 ML 150 ML IV CONT (09:44)
--- NOTE | 2022-02-24 09:47 | PM.HPGS ---
History of Present Illness History of Present Illness Consent: Risks, benefits, and alternatives have been discussed and questions answered. Patient agrees to proceed with procedure. Chief complaint: dysphagia Narrative: Daniela Brooks is a 76 year old female with dysphagia, last EGD 2020 showed loose juan jose with small hernia but no ring or resistance when scope was advanced, esophageal bx normal. Review of Systems Constitutional: Constitutional: Denies headache(s) and Denies weakness Eyes: Eyes: Denies blurry vision ENT: Reports Normal hearing present, Denies headache(s) and Denies neck pain Cardiovascular: Cardiovascular: Denies chest pain and Denies dyspnea Respiratory: Respiratory: Denies dyspnea Gastrointestinal: Gastrointestinal: Reports no additional gastrointestinal complaints Genitourinary: Genitourinary: Denies dysuria Musculoskeletal: Musculoskeletal: Denies neck pain Integumentary/Breasts: Skin/Breast: Denies dry skin Neurologic: Reports Normal hearing present, Denies headache(s) and Denies weakness Psychiatric: Psychiatric: Denies anxiety Endocrine: Endocrine: Denies change in body appearance Hematologic/Lymphatic: Hematologic/Lymphatic: Denies easy bleeding Allergic/Immunologic: Allergic/Immunologic: Denies urticaria PMFSH Past Medical History Medical History Anxiety Arthritis Balance disorder Benign breast cyst in female Eczema Elevated liver enzymes (~05/30/19) GERD (gastroesophageal reflux disease) HLD (hyperlipidemia) Hypertension Hypothyroid (Unknown) Inflammatory arthritis Meningitis Primary hypersomnia Right femoral fracture Scoliosis (and kyphoscoliosis), idiopathic Seasonal allergies Skin problem TIA (transient ischemic attack) Urinary problem Surgical History Surgical History H/O bilateral cataract extraction H/O mastectomy H/O removal of cyst History of appendectomy History of bladder surgery History of carpal tunnel surgery of right wrist June 2019 History of hernia repair Hiatal History of hysterectomy History of repair of hiatal hernia Hx of breast implants, bilateral Hx of tonsillectomy S/P laparoscopic cholecystectomy Family History Family History Father Acute myocardial infarction Patient's father is Mother Family history of respiratory disorder Patient's mother is CHF (congestive heart failure) Social History Social History Social History: Patient lives at home with her dog. She lists family members Luzmaria and Bernadette as her surrogate medical decision makers. 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 She sees Dr. Peres as her primary. Smoking status: Never smoker Second hand tobacco smoke exposure: No Alcohol intake: never Alcohol use details: STATES MAYBE 1 DRINK A MONTH IF THAT Substance use: never Substance use type: does not use Living arrangements: alone Gender identity (if verbalized by the patient): Female Spiritual care concerns: No Agree to blood products: No Meds Home Medications and Allergies Home Medications Medication Instructions Recorded Confirmed Type clotrimazole-betamethasone 1 1 applic topical BID PRN Itching 05/18/19 02/24/22 History %-0.05 % topical cream (Lotrisone) multivit with minerals-iron 18 1 tablet PO DAILY 05/20/19 02/24/22 History mg-folic ac 400 mcg-vit K 25 mcg tablet (Adults Multivitamin) tramadol 50 mg tablet 50 mg PO Q6H PRN pain #10 tabs 06/19/20 02/24/22 Rx celecoxib 200 mg capsule 200 mg PO DAILY #90 caps 05/27/21 02/24/22 Rx benazepril 40 mg tablet 40 mg PO DAILY #90 tabs 07/05/21 02/24/22 Rx armodafinil 250 mg tablet 125 mg PO DAILY 1 month #15 tabs 08/23/21
[2022-02-24 10:01] VITALS: BP 135/64; PULSE 83; RESP 20; O2SAT 93
[2022-02-24 10:11] VITALS: BP 152/64; BP 169/66; PULSE 68; PULSE 82; RESP 16; RESP 20; O2SAT 93; O2SAT 97
== END 2022-02-24 10:37 | disposition home or self-care (01) ==
PROVIDERS: PCP Internal Medicine; Visit Provider Internal Medicine Gastroenterology
PROC: 0DJ08ZZ Inspection of Upper Intestinal Tract, Via Natural or Artificial Opening Endoscopic (ICD-10-PCS; CPT 43235; principal; 2022-02-24 10:30)
DX: R13.19 Other dysphagia (principal); K44.9 Diaphragmatic hernia without obstruction or gangrene; F41.9 Anxiety disorder, unspecified; M19.90 Unspecified osteoarthritis, unspecified site; K21.9 Gastro-esophageal reflux disease without esophagitis; I10 Essential (primary) hypertension; E78.5 Hyperlipidemia, unspecified; E03.9 Hypothyroidism, unspecified; M41.9 Scoliosis, unspecified; Z86.73 Personal history of transient ischemic attack (TIA), and cerebral infarction without residual deficits; Z90.49 Acquired absence of other specified parts of digestive tract; R13.10 Dysphagia, unspecified
CPT/HCPCS: 43450; 43235; J2704; J7120

== ENCOUNTER → 2022-04-14 12:43 | Outpatient (CLI) | payer MEDICARE, SELFPAY ==
--- NOTE | ~2022-04-14 | XR_ITS ---
XR chest 2V DATE: 04/14/2022 13:05 INDICATION: Cough TECHNIQUE: PA and lateral views COMPARISON: 01/14/2019 PA and lateral chest FINDINGS: Bilateral calcified breast implants are noted. There is diffuse osteopenia. There is prominent dextroscoliosis of the thoracic spine and severe levo scoliosis of the lumbar spine. Normal heart size. Aortic arch calcification. No hilar or mediastinal enlargement. No pulmonary infiltrate or consolidation, pleural effusion or pulmonary vascular congestion or pneumo thorax is detected. IMPRESSION: Rotatory no active cardiac pulmonary disease or significant change since 01/14/2019 Reviewed, dictated and finalized at location [facility]. ATIONS SUPPORT COORDINATOR
== END ==
PROVIDERS: PCP Internal Medicine; Visit Provider Internal Medicine
DX: R05.9 Cough, unspecified (principal)
CPT/HCPCS: 71046

== ENCOUNTER 2022-04-16 16:23 | Emergency (ER) | payer MEDICARE, SELFPAY ==
--- NOTE | 2022-04-16 16:57 | ED.URI ---
HPI - URI/Sore Throat General Chief Complaint: Upper Respiratory Infection Stated Complaint: cough, head,neck,shoulder pain Time Seen by Provider: 04/16/22 17:18 Source: patient Mode of arrival: ambulatory Limitations: no limitations History of Present Illness HPI Narrative: Ms. Brooks is a 76-year-old female patient presenting to clinic today with complaints of cough, headache, neck and shoulder pain. She reports that she has had this cough times 2-3 weeks. She had had a chest x-ray earlier this week and was negative for any sign of pneumonia. She reports she is having some pain to the back of her head/neck and into her shoulders. She is having pain with turning her head side to side as well as moving her head up and down. She denies any known fever however she does have at 38.2? C temp in the clinic today. She denies any shortness of breath or chest pain MD elicited complaint: sore throat and nasal congestion Related Data Home Medications Medication Instructions Recorded Confirmed multivit with minerals-iron 18 1 tablet PO DAILY 05/20/19 04/16/22 mg-folic ac 400 mcg-vit K 25 mcg tablet (Adults Multivitamin) calcium carbonate 600 mg-vitamin 1 tablet PO DAILY 02/07/22 04/16/22 D3 5 mcg (200 unit) tablet ergocalciferol (vitamin D2) 25,000 50,000 unit PO WEEKLY 02/07/22 04/16/22 unit capsule methocarbamol 750 mg tablet 750 mg PO QHS 03/17/22 04/16/22 Allergies Allergy/AdvReac Type Severity Reaction Status Date / Time donepezil AdvReac Intermediate NAUSEA Verified 04/16/22 17:14 phenylephrine AdvReac Mild Dizziness Verified 04/16/22 17:14 sumatriptan [From Imitrex] AdvReac Mild Nausea Verified 04/16/22 17:14 codeine AdvReac Unknown Nausea Verified 04/16/22 17:14 gabapentin AdvReac Unknown Nausea Verified 04/16/22 17:14 hydrocodone [From Vicodin] AdvReac Unknown Nausea Verified 04/16/22 17:14 propoxyphene AdvReac Unknown SEVERE Verified 04/16/22 17:14 NAUSEA Review of Systems Review of Systems: Pertinent positives per HPI. Patient denies any fever, chills, rash, visual changes, dizziness, runny nose, sore throat, shortness of breath, chest pain, palpitations, nausea, vomiting, diarrhea, constipation, abdominal pain, or any urinary issues. [facility] Past Medical History Medical History Anxiety Arthritis Balance disorder Benign breast cyst in female Eczema Elevated liver enzymes (~05/30/19) Generalized osteoarthritis of multiple sites GERD (gastroesophageal reflux disease) HLD (hyperlipidemia) Hypertension Hypothyroid (Unknown) Inflammatory arthritis Meningitis Primary hypersomnia Right femoral fracture Scoliosis (and kyphoscoliosis), idiopathic Seasonal allergies Skin problem TIA (transient ischemic attack) Urinary problem Surgical History Surgical History H/O bilateral cataract extraction H/O mastectomy H/O removal of cyst History of appendectomy History of bladder surgery History of carpal tunnel surgery of right wrist June 2019 History of hernia repair Hiatal History of hysterectomy History of repair of hiatal hernia Hx of breast implants, bilateral Hx of tonsillectomy S/P laparoscopic cholecystectomy Family History Family History Father Acute myocardial infarction Patient's father is Mother Family history of respiratory disorder Patient's mother is CHF (congestive heart failure) Social History Social History Social History: Patient lives at home with her dog. She lists family members Luzmaria and Bernadette as her surrogate medical decision makers. 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 She sees Dr. Peres as her primary. Smoking status: Never smoker Second hand tobac
[2022-04-16 17:06] VITALS: BP 185/96; PULSE 102; RESP 16; TEMP 38.2; O2SAT 96
== END 2022-04-16 17:29 | disposition home or self-care (01) ==
PROVIDERS: Emergency Provider Nurse Practitioner Family; PCP Internal Medicine
DX: S16.1XXA Strain of muscle, fascia and tendon at neck level, initial encounter (principal); X58.XXXA Exposure to other specified factors, initial encounter; J40 Bronchitis, not specified as acute or chronic; I10 Essential (primary) hypertension; K21.9 Gastro-esophageal reflux disease without esophagitis; E78.5 Hyperlipidemia, unspecified; E03.9 Hypothyroidism, unspecified; M13.80 Other specified arthritis, unspecified site; Z86.73 Personal history of transient ischemic attack (TIA), and cerebral infarction without residual deficits
CPT/HCPCS: 87804; 99213; G0463

== ENCOUNTER 2022-04-18 11:19 | Emergency (ER) | payer MEDICARE, SELFPAY ==
--- NOTE | ~2022-04-18 | XR_ITS ---
XR_CERV2-3V_CR DATE: 04/18/2022 13:50 INDICATION: Left posterior neck pain for 5 days. No injury. TECHNIQUE: AP, open-mouth, odontoid, lateral views COMPARISON: 11/13/2016 cervical spine FINDINGS: Again noted is reversal of cervical curvature. There is chronic approximately 3 mm anterolisthesis at C2-3 and C3-4. There is severe degenerative disc disease with virtual obliteration of disc space and prominent spurr ing at C4-5 and C5-6 and C6-7. There is associated minimal retrolisthesis at C4-5 and C6-7. There is approximately 5 mm anterolisthesis at C7-T1. There is uncovertebral joint spurring of the mid and lower cervical spine. There is degenerative change at the apophyseal joints. No fracture or dislocation or locked facet is detected. IMPRESSION: Reversal of cervical curvature Severe cervical spondylosis No fracture or significant change since 2016 Reviewed, dictated and finalized at [facility]. Reviewed, dictated and finalized at location [facility]. GRINDER
[2022-04-18 11:26] VITALS: BP 165/81; PULSE 97; RESP 18; TEMP 36.8; O2SAT 96
--- NOTE | 2022-04-18 11:28 | ECG_ITS ---
Measurements Intervals [place] Rate: 93 P: 68 MN: 139 QRS: -6 QRSD: 86 T: 100 QT: 330 QTc: 411 Interpretive Statements SINUS RHYTHM DELAYED PRECORDIAL R/S TRANSITION LEFT VENTRICULAR HYPERTROPHY AND ST-T CHANGE BASELINE ARTIFACT- I, III, AVL, V5-V6 BORDERLINE ECG COMPARED TO ECG 07/02/2020 11:12:35 NO SIGNIFICANT CHANGES Electronically Signed On 04-18-2022 12:30:44 RESIDENT PROGRAMS ASSISTANT by Prasanna Lorenzana D.O.
[2022-04-18 11:38] LABS: Basophils Absolute Auto 0.1 K/mm3 (0.0-0.1); Eosinophils Absolute Auto 0.4 K/mm3 (0-0.3); Eosinophils Percent Auto 3.3 % (0-4.4); Hematocrit 38.8 % (37.0-47.0); Hemoglobin 12.4 g/dL (12.0-15.0); Immature Granulocyte Absolute 0.04 K/mm3 (0.00-0.031); Immature Granulocyte Percent A 0.4 % (0-0.5); Lymphocytes Absolute Auto 2.22 K/mm3 (0.9-3.2); Mean Corpuscular Hemoglobin 29.7 pg (26-34); Mean Platelet Volume 10.7 fl (7.4-10.4); Monocytes Absolute Auto 0.9 K/mm3 (0.1-0.6); Monocytes Percent Auto 8.5 % (2.6-8.5); Neutrophils Absolute Auto 6.9 K/mm3 (1.3-6.7); Neutrophils Percent Auto 65.8 % (45.5-73.1); Platelet Count Result 324 k/mm3 (150-375); Red Blood Count 4.17 M/mm3 (4.2-5.4); Red Cell Distribution Width 12.7 % (11.5-14.5); White Blood Count 10.6 K/mm3 (4.5-10.0)
[2022-04-18 11:51] LABS: Alanine Aminotransferase 19 U/L (6-35); Albumin Level 4.2 g/dL (3.5-5.1); Alkaline Phosphatase 97 U/L (38-126); Anion Gap 6 mmol/L (8-16); Aspartate Amino Transferase 27 U/L (14-36); Bilirubin,Total 0.4 mg/dL (0.2-1.3); Blood Urea Nitrogen 15 mg/dL (7-17); Calcium 8.9 mg/dL (8.4-10.2); Carbon Dioxide 32 mmol/L (22-30); Chloride 101 mmol/L (98-107); Estimated Glomerular Filt Rate > 60; Glucose 131 mg/dL (65-110); Lipase 32 U/L (23-300); Potassium 3.5 mmol/L (3.4-5.0); Sodium 139 mmol/L (137-145)
[2022-04-18] MEDS: KETOROLAC 15 MG/ML VIAL (*BKC) IV PUSH (13:16)
[2022-04-18] MEDS: CYCLOBENZAPRINE HCL 5 MG TABLET PO (13:17)
[2022-04-18] MEDS: SODIUM CHLORIDE 0.9% IV 1,000 ML 999 ML IV CONT (13:17)
[2022-04-18 13:20] VITALS: BP 142/72; PULSE 93; RESP 20; O2SAT 99
--- NOTE | 2022-04-18 13:44 | PC.NURSE ---
Pt in Xray
--- NOTE | 2022-04-18 14:10 | ED.NECK ---
HPI - Neck Pain/Injury General Chief Complaint: Neck Pain/Injury Stated Complaint: Neck pain Time Seen by Provider: 04/18/22 12:27 History of Present Illness HPI Narrative: Patient is a 76-year-old female who presents ER with left-sided neck pain. Ongoing over the last couple of days. Left-sided. Radiates into the back of the head and causes headache. No change in vision or hearing. No numbness or tingling to the arms or legs. No trauma to the neck. She has tried Tylenol and Tylenol arthritis without improvement. She sees a pain management doctor who told her if she got an MRI they be able to decide if they could do a block to the area. Patient is without fevers or chills or sweats. She does report some cough for which she was prescribed a Z-René at an urgent care, she has been having a cough for the last 2 to 3 weeks. She had a negative flu test while she was there. She had negative chest x-ray earlier in the week. Related Data Home Medications Medication Instructions Recorded Confirmed multivit with minerals-iron 18 1 tablet PO DAILY 05/20/19 04/16/22 mg-folic ac 400 mcg-vit K 25 mcg tablet (Adults Multivitamin) calcium carbonate 600 mg-vitamin 1 tablet PO DAILY 02/07/22 04/16/22 D3 5 mcg (200 unit) tablet ergocalciferol (vitamin D2) 25,000 50,000 unit PO WEEKLY 02/07/22 04/16/22 unit capsule methocarbamol 750 mg tablet 750 mg PO QHS 03/17/22 04/16/22 Allergies Allergy/AdvReac Type Severity Reaction Status Date / Time donepezil AdvReac Intermediate NAUSEA Verified 04/18/22 13:22 phenylephrine AdvReac Mild Dizziness Verified 04/18/22 13:22 sumatriptan [From Imitrex] AdvReac Mild Nausea Verified 04/18/22 13:22 codeine AdvReac Unknown Nausea Verified 04/18/22 13:22 gabapentin AdvReac Unknown Nausea Verified 04/18/22 13:22 hydrocodone [From Vicodin] AdvReac Unknown Nausea Verified 04/18/22 13:22 propoxyphene AdvReac Unknown SEVERE Verified 04/18/22 13:22 NAUSEA Review of Systems Review of Systems: All systems reviewed & are unremarkable except as noted in HPI and below Constitutional: Constitutional: Denies chills and Denies fever(s) ENT: Denies nasal congestion and Denies sore throat Cardiovascular: Cardiovascular: Denies chest pain, Denies rapid heart rate and Denies radiating jaw, neck or arm pain Respiratory: Respiratory: Reports cough and Denies dyspnea Gastrointestinal: Gastrointestinal: Denies abdominal pain, Denies diarrhea and Denies vomiting Neurologic: Denies syncope, Denies headache(s), Denies focal weakness and Denies numbness PMFSH Past Medical History Medical History Anxiety Arthritis Balance disorder Benign breast cyst in female Eczema Elevated liver enzymes (~05/30/19) Generalized osteoarthritis of multiple sites GERD (gastroesophageal reflux disease) HLD (hyperlipidemia) Hypertension Hypothyroid (Unknown) Inflammatory arthritis Meningitis Primary hypersomnia Right femoral fracture Scoliosis (and kyphoscoliosis), idiopathic Seasonal allergies Skin problem TIA (transient ischemic attack) Urinary problem Surgical History Surgical History H/O bilateral cataract extraction H/O mastectomy H/O removal of cyst History of appendectomy History of bladder surgery History of carpal tunnel surgery of right wrist June 2019 History of hernia repair Hiatal History of hysterectomy History of repair of hiatal hernia Hx of breast implants, bilateral Hx of tonsillectomy S/P laparoscopic cholecystectomy Family History Family History Father Acute myocardial infarction Patient's father is Mother Family history of respiratory disorder Patient's mother is CHF (congestive heart failure) Social History Social History (Reviewed 03/17/22 @ 15:04 by Neha Lemons MA
[2022-04-18 14:13] VITALS: BP 156/78; PULSE 92; RESP 20; O2SAT 99
[2022-04-18 15:52] VITALS: BP 140/80; PULSE 90; RESP 18; O2SAT 99
== END 2022-04-18 15:54 | disposition home or self-care (01) ==
PROVIDERS: Emergency Medicine; Emergency Provider Emergency Medicine; PCP Internal Medicine
DX: S16.1XXA Strain of muscle, fascia and tendon at neck level, initial encounter (principal); I10 Essential (primary) hypertension; E78.5 Hyperlipidemia, unspecified; E03.9 Hypothyroidism, unspecified; X58.XXXA Exposure to other specified factors, initial encounter
CPT/HCPCS: 36415; 72040; 80053; 83690; 85025; 93005; 96361; 96374; 99284; A9270; J1885; J7030

== ENCOUNTER 2022-07-28 10:30 | Outpatient (RCR) | payer MEDICARE, SELFPAY ==
--- NOTE | 2022-05-01 17:00 | PTOPEVAL1 ---
Assessment and note entered by Eddie Lr, PT Evaluation Information Assessment Status Evaluation Diagnosis abnormalities of gait and mobility Onset chronic Subjective Information Patient reports that she has had balance issues for at least 5 years, but has no falls. She would like to feel more comfortable on her feet. Also reports trouble getting up from any seat that does not have armrests including needing to ask for assistance to get up from chairs in restaurants. Patient also will be going to [facility] tomorrow for a week and then has a procedure on May 12 that sounds like some sort of injection. Reported Pain Level Pain Score 0: Self Report Assessment PT Clinical Summary Devon is a 76 year old female coming into the clinic for balance issues as she reports she feels she is going to fall. Reports no falls. Patient has weakness in the hips to go with tightness on her lower extremity worse on the L side and decreased sensation on the R foot. Patient was given a handout of exercises to do while on vacation and when she returns can work with physical therapy to improve strength of her lower extremities and stretch her out to improve muscle imbalance. Will work on balance and endurance also to improve 5 sit to stand test and 6 minute walk test. Plan of Care Interventions Electrical Stimulation,Gait Training,Hot Pack/Cold Pack,Manual Therapy,Neuro Re-education,Patient/ Caregiver Education,Therapeutic Activities, Therapeutic Exercise PT Services Indicated Yes Treatment Frequency and 1-2x/week for 6 weeks Duration These treatments will address the objective and functional deficits as defined above. The patient will be advanced safely and appropriately in order for the patient to progress towards his/her prior level of function. Additional exercises will be introduced and as well as a comprehensive home exercise program upon discharge, if needed, ?to ensure carryover of functional gains achieved in the clinic. This treatment plan has been reviewed and agreement upon by the patient.
--- NOTE | 2022-05-14 11:08 | PCPTNOTE ---
Patient called & cancelled scheduled appointment this date due to not feeling well.
--- NOTE | 2022-05-22 11:50 | PCPTNOTE ---
Patient called & cancelled scheduled appointment this date due to snowy weather
--- NOTE | 2022-06-11 16:12 | PTOPREEVAL ---
Assessment and note entered by Eddie Lr, PT Evaluation Information Assessment Status Re-evaluation Diagnosis abnormalities of gait and mobility Onset chronic Subjective Information Patient is very happy with the progress she has made so far, feeling more confident with walking, and able to get up from more sitting surfaces without the assistance of others. 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 Reported Pain Level Pain Score 0: Self Report Assessment PT Clinical Summary Devon is a 76 year old female coming to the clinic for balance and strengthening. She has met her hip strengthening goal and made improvements in her 6 minute walk test picking up 40 feet and decreasing the L hamstring tightness. Still needs to work on sit to stands and balance. Recommend continuation of the skilled physical therapy to address functional mobility concerns. Along with script for occupational therapy for carburetor repairer strength concerns. Plan of Care Interventions Electrical Stimulation,Gait Training,Hot Pack/Cold Pack,Manual Therapy,Neuro Re-education,Patient/ Caregiver Education,Therapeutic Activities, Therapeutic Exercise Other Interventions taping PT Services Indicated Yes Treatment Frequency and 1-2xwk/4 weeks Duration These treatments will address the objective and functional deficits as defined above. The patient will be advanced safely and appropriately in order for the patient to progress towards his/her prior level of function. Additional exercises will be introduced and as well as a comprehensive home exercise program upon discharge, if needed, ?to ensure carryover of functional gains achieved in the clinic. This treatment plan has been reviewed and agreement upon by the patient.
--- NOTE | 2022-07-02 12:21 | OTOPEVAL1 ---
Assessment and note entered by Franco Kirkland, JUDITH/Katlin, CHT Evaluation Information Assessment Status Evaluation Diagnosis R29.898 Subjective Information Patient reporting difficulties using her hands - states she feels weak, is unable to open a bottle of soda, chop veggies, hook a bra. States she drops everything. Reported Pain Level Pain Score 0: Self Report Assessment OT Clinical Summary Patient referred to outpatient OT with reports of decreased hand use due to weakness. She reports functional limitations with griping items and opening soda bottles. Skilled OT indicated to facilitate optimal functional hand use through use of modalities, manual therapy, strengthening, and functional therapeutic exercises to maximize functional hand use and strength. Plan of Care Interventions Therapeutic Exercise,Manual Therapy,Therapeutic Activities,Hot Pack/Cold Pack,Paraffin OT Services Indicated Yes Treatment Frequency and 1x/week for 4 weeks Duration These treatments will address the objective and functional deficits as defined above. The patient will be advanced safely and appropriately in order for the patient to progress towards his/her prior level of function. Additional exercises will be introduced and as well as a comprehensive home exercise program upon discharge, if needed, ?to ensure carryover of functional gains achieved in the clinic. This treatment plan has been reviewed and agreement upon by the patient.
--- NOTE | 2022-07-21 12:48 | PCOTNOTE ---
Patient did not show for scheduled OT treatment this afternoon. Called patient and left voicemail reminding her of her next appointment.
--- NOTE | 2022-07-28 10:16 | PTOPDC ---
Assessment and note entered by Eddie Lr, PT Evaluation Information Assessment Status Discharge Diagnosis abnormalities of gait and mobility Onset chronic Subjective Information Patient reports no new falls and has been noticing that she is moving around better, besides curb steps which she thinks is more mental than physical. Patient feels safe with discharge. Reported Pain Level Pain Score 0: Self Report Assessment PT Clinical Summary Devon has been coming to physical therapy to work on balance since 05/01/22. She has attended 11 visits and has met her Tinetti score 5 sit to stand, JEANNE hip strength goals along with improving 6 minute walk distance by 100'. Patient reports she feels like she is doing a lot better than when she started reporting no falls since last re- evaluation and able to get up from chairs more easy. She reports she feels week, but when pressed she states a lot of that has to do with her hands. Discharged from skilled physical therapy. Plan of Care PT Services Indicated No Treatment Frequency and discharged from skilled physical therapy. Duration
--- NOTE | 2022-07-28 10:27 | OTOPDC ---
Assessment and note entered by Franco Kirkland, JUDITH/Katlin, CHT Evaluation Information Assessment Status Discharge Diagnosis R29.898 Subjective Information Patient reports she is now able to use her hands to open some soda bottles and take lids of her mary galindo. She reports she her hands feel a little stronger. She reports no change when it comes to dropping everything. Reported Pain Level Pain Score 0: Self Report Additional Pain Score Comments No pain today. Reporting no pain during any therapy sessions. Assessment OT Clinical Summary Patient referred to outpatient OT with reports of decreased hand use due to weakness. She reports some functional improvements, but does state she continues to feel limited with gripping and that she continues to drop items. Measurements today show no changes in ROM or strength. 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 Plan of Care OT Services Indicated No
== END 2022-07-28 11:48 | disposition home or self-care (01) ==
LOC: ANHOT 10:30
PROVIDERS: PCP Internal Medicine; Visit Provider Internal Medicine
DX: M41.20 Other idiopathic scoliosis, site unspecified (principal); R26.89 Other abnormalities of gait and mobility
CPT/HCPCS: 97018; 97110; 97112; 97140; 97161; 97165; 97530; 99199